=== PATIENT | female | born 1995 | race African-American/Black ===

== ENCOUNTER 2019-03-24 08:38 | Day surgery (SDC) | payer BC ==
[2019-03-21 09:55] VITALS: BMI 45.7
[2019-03-24] MEDS ORDERED: Lidocaine 1% PF 5 ML VIAL ONE (09:40)
[2019-03-24] MEDS ORDERED: PROPOFOL 200 MG/20 ML VIAL ONE (09:40)
--- NOTE | 2019-03-24 12:19 | OP ---
DATE OF PROCEDURE: 03/24/2019 PROCEDURE PERFORMED: Esophagogastroduodenoscopy with biopsy. INDICATIONS FOR PROCEDURE: Midepigastric abdominal pain, generalized abdominal pain. DESCRIPTION OF PROCEDURE: After the risks and benefits of the procedure were explained to the patient, including risks of bleeding, infection, perforation, reactions to anesthesia, aspiration, and/or pain, informed consent was obtained. The patient was then taken to the endoscopy suite, where deep sedation was administered via propofol and Anesthesia support. Once the patient was adequately sedated, the standard gastroscope was introduced into the mouth with intubation of the esophagus, stomach, and the proximal small intestines with the findings listed below. The patient tolerated the procedure well with no immediate perioperative complications. Upon conclusion of the procedure, all equipment was removed from the patient and she was transferred to Day Stay in satisfactory condition. FINDINGS: Esophagus: Normal-appearing mucosa was seen in the proximal, mid, and distal esophagus. There was no evidence of erosions, ulcerations, mass, lesions, or active/recent bleeding. Stomach: Normal-appearing mucosa was seen in the gastric cardia, fundus, body, greater curvature, antrum, and incisura. There was a moderate amount of bile seen within the stomach, that was easily suctioned with the gastroscope. Random biopsies were taken throughout the stomach for evaluation of H pylori status. Otherwise, there was no evidence of erosions, ulcerations, mass, lesions, or active/recent bleeding. Duodenum: Normal-appearing mucosa was seen in both the duodenal bulb and second portion of the duodenum. There was no evidence of erosions, ulcerations, mass, lesions, or active/recent bleeding. Multiple random biopsies were taken for evaluation of possible celiac disease. IMPRESSION: 1. [id number] amount of bile seen within the stomach, but without associated erythema or ulceration. 2. Otherwise normal upper endoscopy. 3. No etiology for the patient's abdominal pain was seen during this examination. RECOMMENDATIONS: 1. Would continue the patient on PPI daily. 2. Would continue dicyclomine as needed for abdominal pain. 3. We will follow up on the biopsy results for possible H pylori infection and/or celiac disease and treat as appropriate. 4. Would have the patient follow up in the GI Clinic in 3 to 4 weeks for re-evaluation of the patient's abdominal pain. Job ID: [id number]
== END 2019-03-24 12:31 | disposition home or self-care (01) ==
LOC: SDC 08:38
PROVIDERS: ATTEND Internal Medicine
PROC: 0DB98ZX Excision of Duodenum, Via Natural or Artificial Opening Endoscopic, Diagnostic (ICD-10-PCS; principal; 2019-03-24)
DX: K29.80 Duodenitis without bleeding (principal); D72.820 Lymphocytosis (symptomatic); Z79.899 Other long term (current) drug therapy
CPT/HCPCS: 88305; 88312; J2001; J2704

== ENCOUNTER 2023-08-13 01:59 | Observation (INO) | payer BC ==
[2023-08-13 04:32] LABS: #Basophils Less than 0.03 10x3/uL (0.0-0.2); #Eosinphils Less than 0.03 10x3/uL (0.0-0.7); %Basophils 0.2 % (0.0-1.0); %Lymphocytes 16.7 % (21.0-51.0); %Monocytes 1.8 % (0.0-10.0); %Neutrophils 79.5 % (42.0-75.0); Hematocrit 38.6 % (36.0-47.0); Hemoglobin 12.6 g/dL (12.0-16.0); Mean Corpuscular HGB CONC 32.6 g/dL (32.0-36.0); Mean Corpuscular Hemoglobin 25.8 pg (27.0-31.0); Mean Corpuscular Volume 78.9 fL (78.0-98.0); Mean Platelet Volume 8.4 fL (7.4-10.4); Platelet Count 378 10x3/uL (130-400); RBC Distribution Width 12.8 % (11.5-14.5); Red Blood Cell (RBC) Count 4.89 mill/uL (4.20-5.40)
[2023-08-13 04:46] LABS: ALT (SGPT) 24 U/L (8-55); AST (SGOT) 16 U/L (5-34); Albumin 3.6 g/dL (3.5-5.0); Alkaline Phosphatase 70 U/L (40-110); Anion Gap 14 mmol/L (10-20); BUN (Urea Nitrogen) 9 mg/dL (7.0-18.7); Bilirubin, Total 0.3 mg/dL (0.2-1.2); Calc. Creatinine Clearance 0 mL/min (70-130); Carbon Dioxide 21 mmol/L (22-29); Chloride 108 mmol/L (98-107); Estimated GFR 122; Globulin 4.7 g/dL (2.4-3.5); Glucose 132 mg/dL (70-105); Potassium 4.1 mmol/L (3.5-5.1); Protein, Total 8.3 g/dL (6.0-8.3); Sodium 139 mmol/L (136-145)
[2023-08-13 04:52] LABS: Troponin I 0.051 ng/mL (< 0.028)
[2023-08-13] MEDS ORDERED: Metoclopramide HCl 10 MG (2 mL) VIAL ONE (05:00)
[2023-08-13] MEDS ORDERED: diphenhydrAMINE 50 MG/ML VIAL ONE (05:00)
[2023-08-13 05:41] LABS: BHCG - Serum Negative (NEGATIVE); Pregs Control Background? CLEAR/WHITE (CLR/WHITE); Pregs Control Bar Appear? YES (CONTROL BAR)
[2023-08-13 08:18] LABS: Troponin I 0.041 ng/mL (< 0.028)
[2023-08-13] MEDS ORDERED: Calcium Carbonate 500 MG ChewTAB PO PRN (08:47)
[2023-08-13] MEDS ORDERED: Nitroglycerin 0.4 MG TAB (25 Tab Bottle) SL PRN (08:47)
[2023-08-13] MEDS ORDERED: Ondansetron PF 4 MG/2 ML Vial IVP PRN (08:47)
[2023-08-13] MEDS ORDERED: Senokot S 8.6-50 MG TAB PO PRN (08:47)
[2023-08-13] MEDS ORDERED: Acetaminophen 650 MG Suppository PR PRN (08:47)
[2023-08-13] MEDS ORDERED: Albuterol 200 PUFF (6.7GM INHALER) INH PRN (08:47)
[2023-08-13] MEDS ORDERED: Ondansetron ODT 4 MG TAB PO PRN (08:47)
[2023-08-13 08:53] VITALS: BMI 56.6
[2023-08-13] MEDS ORDERED: Electrolyte Replacement Protocol 1 EACH FS SCH (09:00)
[2023-08-13] MEDS: Magnesium 2 GM/50 ML(in water) 2 GM in Premix 1 BAG IVPB SCH (10:47)
[2023-08-13] MEDS: predniSONE 20 MG TAB PO SCH (10:48)
[2023-08-13] MEDS: Multivit, Therapeutic 1 TAB PO SCH (10:48)
[2023-08-13] MEDS: Pantoprazole DR 40 MG TAB PO SCH (10:48)
[2023-08-13] MEDS: Enoxaparin 40 MG (0.4 mL) SYRINGE SC SCH (10:49)
[2023-08-13] MEDS ORDERED: Iopamidol-370 76% 500 ML MDV (1 ML CHARGE) ONE (10:54)
[2023-08-13] MEDS: Benzonatate 100 MG CAP PO PRN (17:30)
[2023-08-13 18:39] LABS: Troponin I Less than 0.010 ng/mL (< 0.028)
[2023-08-13] MEDS: Ipratropium/Albuterol 3 ML NEB NEB PRN (19:02)
[2023-08-13] MEDS: Montelukast Sodium 10 mg Tablet PO SCH (20:25)
[2023-08-13] MEDS: Magnesium Oxide 400 MG TAB PO SCH (20:25)
[2023-08-13] MEDS: Melatonin 3 MG TAB PO SCH (22:11)
[2023-08-14] MEDS: Acetaminophen 325 MG TAB PO PRN (04:16)
[2023-08-14 04:58] LABS: #Basophils Less than 0.03 10x3/uL (0.0-0.2); #Eosinphils Less than 0.03 10x3/uL (0.0-0.7); %Basophils 0.3 % (0.0-1.0); %Lymphocytes 31.7 % (21.0-51.0); %Monocytes 6.5 % (0.0-10.0); %Neutrophils 60.7 % (42.0-75.0); Hematocrit 34.3 % (36.0-47.0); Mean Corpuscular HGB CONC 32.1 g/dL (32.0-36.0); Mean Corpuscular Hemoglobin 25.5 pg (27.0-31.0); Mean Corpuscular Volume 79.4 fL (78.0-98.0); Mean Platelet Volume 8.8 fL (7.4-10.4); Platelet Count 331 10x3/uL (130-400); RBC Distribution Width 13.2 % (11.5-14.5); Red Blood Cell (RBC) Count 4.32 mill/uL (4.20-5.40)
[2023-08-14 05:44] LABS: Anion Gap 14 mmol/L (10-20); BUN (Urea Nitrogen) 10 mg/dL (7.0-18.7); Calc. Creatinine Clearance 269 mL/min (70-130); Calcium 8.8 mg/dL (7.8-10.44); Carbon Dioxide 22 mmol/L (22-29); Cardiac Risk 4.9 (Less than 4.5); Chloride 109 mmol/L (98-107); Cholesterol 201 mg/dl (< 200 Desired); Estimated GFR 114; Glucose 100 mg/dL (70-105); HDL Cholesterol 41 mg/dL (>60 Neg Risk); LDL Cholesterol, Calculated 144 mg/dL; Potassium 3.8 mmol/L (3.5-5.1); Sodium 141 mmol/L (136-145); Triglycerides 80 mg/dL (Less than 150)
[2023-08-14] MEDS ORDERED: Regadenoson 0.4 MG/5 ML SYRINGE ONE (09:36)
[2023-08-14 12:32] VITALS: BP 140/86; TEMP 97.8
[2023-08-14] MEDS: predniSONE 20 MG TAB PO SCH (13:28)
== END 2023-08-14 14:52 | disposition home or self-care (01) ==
LOC: ERS 01:59 → 2SW 08:38
PROVIDERS: ADMIT Internal Medicine; ATTEND Emergency Medicine
DX: R07.89 Other chest pain (principal); R00.2 Palpitations; G40.909 Epilepsy, unspecified, not intractable, without status epilepticus; I5A Non-ischemic myocardial injury (non-traumatic); E28.2 Polycystic ovarian syndrome; J06.9 Acute upper respiratory infection, unspecified; E66.01 Morbid (severe) obesity due to excess calories; Z68.43 Body mass index [BMI] 50.0-59.9, adult; Z86.718 Personal history of other venous thrombosis and embolism; Z88.6 Allergy status to analgesic agent; Z79.899 Other long term (current) drug therapy
CPT/HCPCS: 36415; 71045; 71275; 78452; 80048; 80053; 80061; 83605; 83735; 84443; 84484; 84703; 85025; 87081; 87430; 93005; 93017; 94640; 96365; 96366; 96372; 96375; A9502; G0378; J1200; J1650; J2765; J2785; J3475; J7512; J7620; Q9967